=== PATIENT | female | born 1970 | race Caucasian/White ===

== ENCOUNTER → 2016-10-15 | Outpatient (CLI) | payer OTHER | END | disposition home or self-care (01) | LOC: CFH 08:00 | PROVIDERS: ATTEND Obstetrics & Gynecology | DX: Z12.31 Encounter for screening mammogram for malignant neoplasm of breast (principal); Z80.3 Family history of malignant neoplasm of breast | CPT/HCPCS: 77063; G0202 ==

== ENCOUNTER → 2017-06-03 | Outpatient (CLI) | payer OTHER ==
[~2017-06-03] MED LIST: MELA1TAB8 PO; METO25TA91 PO; VITA1CAP PO; melatonin PO; penicillin PO; vitamin d3 PO
[2017-06-03 13:02] LABS: MICROSCOPIC AUTO
[2017-06-03 13:07] LABS: CULTURE INDICATED? YES
[2017-06-03 13:24] LABS: BASOPHILS # (AUTO) 0.09 x10^3/uL (0-0.1); BASOPHILS % (AUTO) 1 % (0-1); EOSINOPHILS # (AUTO) 0.13 x10^3/uL (0-0.4); EOSINOPHILS % (AUTO) 2 % (1-7); LYMPHOCYTES # (AUTO) 2.27 x10^3/uL (1-3.4); LYMPHOCYTES % (AUTO) 28 % (22-44); MD NO; MEAN CORPUSCULAR HEMOGLOBIN 30.3 pg (27.0-34.8); MEAN CORPUSCULAR HGB CONC 33.6 g/dL (32.4-35.8); MEAN CORPUSCULAR VOLUME 90.2 fL (80-100); MEAN PLATELET VOLUME 8.7 fL (7.4-10.4); MONOCYTES # (AUTO) 0.54 x10^3/uL (0.2-0.8); MONOCYTES % (AUTO) 7 % (2-9); NEUTROPHILS # (AUTO) 5.19 x10^3/uL (1.8-6.8); NEUTROPHILS % (AUTO) 63 % (42-75); PLATELET COUNT 271 x10^3/uL (130-400); RED BLOOD COUNT 4.81 x10^6/uL (3.82-5.3); RED CELL DISTRIBUTION WIDTH 12.8 % (9.6-15.2)
== END | disposition home or self-care (01) ==
LOC: STAR 11:48
DX: Z01.818 Encounter for other preprocedural examination (principal)
CPT/HCPCS: 36415; 81001; 85025; 87086

== ENCOUNTER 2017-06-11 08:51 | Day surgery (SDC) | payer OTHER ==
[~2017-06-11] VITALS: Ht 154.9 cm; Wt 65.1 kg
[2017-06-11] MEDS ORDERED: LACTATED RINGERS 1,000 ML IV SCH (09:17)
[2017-06-11 09:47] LABS: HCG UR SG 1.015 (1.003-1.030)
[2017-06-11] MEDS ORDERED: SCOPOLAMINE 1MG PATCH TD ONE (10:45)
[2017-06-11] MEDS ORDERED: BUPIVACAINE/PF 0.25% ONE (10:58)
[2017-06-11] MEDS ORDERED: GENTAMICIN 80 MG/2 ML ONE (10:58)
[2017-06-11] MEDS ORDERED: INDIGO CARMINE 0.8%, 5ML ONE (10:58)
[2017-06-11] MEDS ORDERED: EPINEPHRINE 1 MG/ML, 1ML ONE (10:59)
[2017-06-11] MEDS ORDERED: VANCOMYCIN 500 MG ONE (10:59)
[2017-06-11] MEDS ORDERED: THROMBIN 5,000 UNIT VIAL TP ONE (10:59)
[2017-06-11] MEDS ORDERED: SCOPOLAMINE PATCH, 1.5MG PATCH.TD72 TD ONE ×3 (11:03→11:04)
[2017-06-11] MEDS ORDERED: FENTANYL PF 100 MCG/2ML ONE (11:06)
[2017-06-11] MEDS ORDERED: MIDAZOLAM 1 MG/ML, 2ML ONE (11:06)
[2017-06-11] MEDS ORDERED: PROPOFOL 50 ML ONE (11:14)
[2017-06-11] MEDS ORDERED: EPHEDRINE 50 MG/ML, 1ML ONE (11:43)
[2017-06-11] MEDS ORDERED: KETOROLAC 30 MG/1 ML ONE (11:45)
[2017-06-11] MEDS ORDERED: METOCLOPRAMIDE 5 MG/ML, 2ML ONE (11:45)
[2017-06-11] MEDS ORDERED: DEXAMETHASONE 4 MG/ML, 1ML ONE (11:45)
[2017-06-11] MEDS ORDERED: PROPOFOL 10 MG/ML, 20ML ONE (11:45)
[2017-06-11] MEDS ORDERED: ONDANSETRON 2MG/ML, 2ML ONE (11:45)
[2017-06-11] MEDS ORDERED: CEFAZOLIN 1,000 MG ONE (11:45)
[2017-06-11] MEDS ORDERED: FLUORESCEIN SODIUM 500 MG/5 ML ONE (11:56)
[2017-06-11] MEDS ORDERED: HYDROmorphone 1 MG/ML, 1ML IV PRN (12:00)
[2017-06-11] MEDS ORDERED: ACETAMINOPHEN 325 MG TABLET PO PRN (12:00)
[2017-06-11] MEDS ORDERED: LABETALOL 5MG/ML, 20ML IV PRN (12:00)
[2017-06-11] MEDS ORDERED: ONDANSETRON 2MG/ML, 2ML IVPush PRN (12:00)
[2017-06-11] MEDS ORDERED: FENTANYL PF 100 MCG/2ML IV PRN (12:00)
[2017-06-11] MEDS ORDERED: hydrALAzine 20 MG/ML, 1ML IV PRN (12:00)
[2017-06-11] MEDS ORDERED: PROMETHAZINE 25 MG/ML, 1ML IV PRN (12:00)
[2017-06-11] MEDS ORDERED: MIDAZOLAM 1 MG/ML, 2ML IV PRN (12:00)
[2017-06-11] MEDS ORDERED: OXYcodone 5 MG/5 ML ORAL.SOL UDC PO PRN (12:00)
[2017-06-11] MEDS ORDERED: DIAZEPAM 5 MG/ML, 2ML IVPush PRN (12:00)
[2017-06-11] MEDS ORDERED: ALBUTEROL/IPRATROPIUM 2.5MG/0.5MG, 3 ML NPPB PRN (12:00)
[2017-06-11] MEDS ORDERED: MEPERIDINE/PF 25MG/0.5ML IVPush PRN (12:00)
[2017-06-11] MEDS ORDERED: MEPERIDINE/PF 50 MG/ML ONE (12:29)
[2017-06-11] MEDS ORDERED: ACETAMINOPHEN 650 MG/20.3 ML UDC ONE (12:47)
[2017-06-11] MEDS ORDERED: OXYcodone 5 MG/5 ML ORAL.SOL UDC ONE (12:47)
== END 2017-06-11 15:30 | disposition home or self-care (01) ==
LOC: OUT 08:51
DX: N39.3 Stress incontinence (female) (male) (principal); N81.10 Cystocele, unspecified; Z98.890 Other specified postprocedural states; Z85.3 Personal history of malignant neoplasm of breast
CPT/HCPCS: 57288; 81025; C1771; J0171; J0690; J1100; J1580; J1885; J2175; J2250; J2405; J2704; J2765; J3010; J3370; J3490; J7120

== ENCOUNTER → 2017-10-16 | Outpatient (CLI) | payer OTHER | END | disposition home or self-care (01) | LOC: CFH 07:39 | PROVIDERS: ATTEND Obstetrics & Gynecology | DX: Z12.31 Encounter for screening mammogram for malignant neoplasm of breast (principal); Z80.3 Family history of malignant neoplasm of breast | CPT/HCPCS: 77063; 77067 ==

== ENCOUNTER → 2017-10-27 | Outpatient (CLI) | payer OTHER | LOC: CFH 07:18 | PROVIDERS: ATTEND Obstetrics & Gynecology | DX: R92.2 Inconclusive mammogram (principal) | CPT/HCPCS: 77065 ==

== ENCOUNTER → 2017-11-05 | Outpatient (CLI) | payer OTHER ==
[~2017-11-05] MED LIST changes: +LIDOCAINE 1%, 20ML ONE; +SODIUM BICARBONATE 4.2%, 5ML ONE
== END | disposition home or self-care (01) ==
LOC: CFH 07:53
PROVIDERS: ATTEND Obstetrics & Gynecology
DX: D05.11 Intraductal carcinoma in situ of right breast (principal); R92.1 Mammographic calcification found on diagnostic imaging of breast
CPT/HCPCS: 19081; 77065; 88305; J3490

== ENCOUNTER → 2017-12-05 | Outpatient (CLI) | payer OTHER ==
[~2017-12-05] VITALS: Ht 154.9 cm; Wt 63.6 kg
[~2017-12-05] MED LIST changes: -LIDOCAINE 1%, 20ML ONE; +MULT-516 PO; -SODIUM BICARBONATE 4.2%, 5ML ONE; +VITAMIN B-12 PO
== END ==
LOC: STAR 07:59
PROVIDERS: ATTEND Surgery
DX: Z02.9 Encounter for administrative examinations, unspecified (principal)

== ENCOUNTER → 2017-12-11 | Outpatient (CLI) | payer OTHER | END | disposition home or self-care (01) | LOC: LAB 11:56 | PROVIDERS: ATTEND Internal Medicine | DX: R63.5 Abnormal weight gain (principal) | CPT/HCPCS: 36415; 84443 ==

== ENCOUNTER 2017-12-18 09:01 | Day surgery (SDC) | payer OTHER ==
[~2017-12-18] VITALS: Ht 154.9 cm; Wt 67.4 kg
[~2017-12-18 09:01] MED LIST changes: +BUPIVACAINE/PF 0.5% ONE; +EPINEPHRINE 1 MG/ML, 1ML ONE; +LIDOCAINE 1%, 20ML ONE
[2017-12-18 09:38] VITALS: BP 122/71
[2017-12-18 09:45] LABS: HCG UR SG 1.014 (1.003-1.030)
[2017-12-18] MEDS ORDERED: LACTATED RINGERS 1,000 ML IV SCH ×2 (10:00→10:05)
[2017-12-18] MEDS ORDERED: ONDANSETRON 2MG/ML, 2ML IVPush ONE (10:00)
[2017-12-18] MEDS ORDERED: GABAPENTIN 300 MG CAPSULE PO ONE (10:00)
[2017-12-18] MEDS ORDERED: PLEASE ENTER HEIGHT AND WEIGHT MC SCH (10:00)
[2017-12-18] MEDS ORDERED: SCOPOLAMINE PATCH, 1.5MG PATCH.TD72 TD ONE (10:00)
[2017-12-18] MEDS ORDERED: ACETAMINOPHEN 500 MG TABLET PO ONE (10:00)
[2017-12-18] MEDS ORDERED: MIDAZOLAM 1 MG/ML, 2ML ONE ×2 (10:23→12:11)
[2017-12-18] MEDS ORDERED: FENTANYL PF 250 MCG/5ML ONE (10:24)
[2017-12-18] MEDS ORDERED: CEFAZOLIN 1,000 MG ONE (10:32)
[2017-12-18] MEDS ORDERED: DEXAMETHASONE 4 MG/ML, 1ML ONE ×3 (10:54)
[2017-12-18] MEDS ORDERED: PROPOFOL 10 MG/ML, 20ML ONE ×6 (10:54)
[2017-12-18] MEDS ORDERED: LIDOCAINE-MPF 2% ,5ML ONE (10:54)
[2017-12-18] MEDS ORDERED: ONDANSETRON 2MG/ML, 2ML ONE ×2 (10:54→15:25)
[2017-12-18] MEDS: MIDAZOLAM 1 MG/ML, 2ML IV PRN ×4 (12:17→13:05)
[2017-12-18] MEDS ORDERED: FENTANYL PF 100 MCG/2ML IV PRN (12:30)
== END 2017-12-18 15:50 | disposition home or self-care (01) ==
LOC: OUT 09:01
PROVIDERS: ATTEND Surgery
DX: D05.11 Intraductal carcinoma in situ of right breast (principal); I47.1 Supraventricular tachycardia; Z90.49 Acquired absence of other specified parts of digestive tract; Z98.890 Other specified postprocedural states; Z79.899 Other long term (current) drug therapy
CPT/HCPCS: 19281; 19301; 81025; 88307; J0171; J0690; J1100; J2250; J2405; J2704; J3010; J3490; J7120

== ENCOUNTER 2018-06-11 08:19 | Outpatient (CLI) | payer OTHER ==
[~2018-06-11 08:19] MED LIST changes: -BUPIVACAINE/PF 0.5% ONE; -EPINEPHRINE 1 MG/ML, 1ML ONE; -LIDOCAINE 1%, 20ML ONE
[2018-06-11 08:31] LABS: MEAN CORPUSCULAR HEMOGLOBIN 30.8 pg (27.0-34.8); MEAN CORPUSCULAR HGB CONC 33.3 g/dL (32.4-35.8); MEAN CORPUSCULAR VOLUME 92.4 fL (80-100); MEAN PLATELET VOLUME 7.3 fL (7.4-10.4); PLATELET COUNT 284 x10^3/uL (130-400); RED BLOOD COUNT 4.52 x10^6/uL (3.82-5.3); RED CELL DISTRIBUTION WIDTH 12.7 % (9.6-15.2)
[2018-06-11 08:46] LABS: CHOL/HDL RATIO 2.7; LDL/HDL RATIO 1.4 (0.5-3.0)
== END 2018-06-11 23:59 | disposition home or self-care (01) ==
LOC: LAB 08:19
PROVIDERS: ATTEND Family Medicine
DX: Z00.01 Encounter for general adult medical examination with abnormal findings (principal)
CPT/HCPCS: 36415; 80061; 85027

== ENCOUNTER → 2018-09-03 | Outpatient (CLI) | payer OTHER | END | disposition home or self-care (01) | LOC: CFH 08:26 | PROVIDERS: ATTEND Family Medicine | DX: Z13.820 Encounter for screening for osteoporosis (principal) | CPT/HCPCS: 77080 ==

== ENCOUNTER → 2018-09-25 | Outpatient (CLI) | payer OTHER ==
[2018-09-25 09:08] LABS: ANION GAP 5 mmol/L (5-15); CALCIUM 8.6 mg/dL (8.5-10.1); CHLORIDE 111 mmol/L (98-107); CREATININE 0.61 mg/dL (0.55-1.02)
== END | disposition home or self-care (01) ==
LOC: LAB 08:48
PROVIDERS: ATTEND Family Medicine
DX: M85.88 Other specified disorders of bone density and structure, other site (principal)
CPT/HCPCS: 36415; 80048

== ENCOUNTER 2018-10-21 08:19 | Outpatient (CLI) | payer OTHER | END 2018-10-21 23:59 | disposition home or self-care (01) | LOC: CFH 08:19 | PROVIDERS: ATTEND Internal Medicine Hematology & Oncology | DX: Z12.31 Encounter for screening mammogram for malignant neoplasm of breast (principal) | CPT/HCPCS: 77063; 77067 ==